=== PATIENT | female | born 1970 | race Caucasian/White ===

== ENCOUNTER 2016-07-09 06:41 | Emergency (ER) | payer SELFPAY ==
[~2016-07-09 06:41] MED LIST: ALBU6.7H INH; AZIT250T3 PO; PRED20 PO; VENTAER INH
[2016-07-09 06:48] VITALS: BP 110/64; PULSE 83; RESP 16; TEMP 98.6; O2SAT 97
--- NOTE | 2016-07-09 07:13 | PD ---
HPI Chief Complaint: Respiratory Symptoms Time Seen by Provider: 07:04 Travel History International Travel<30 days: No Contact w/Intl Traveler<30days: No Traveled to known affect area: No History of Present Illness HPI Patient is a 45 year old female with hx of Asthma/COPD exacerbation, presents to ER with c/o of shortness of breath. Patient reports that she ran out of her inhaler 2 weeks ago and does not have a PCP to refill her albuterol script. Patient reports that for the past week, she has had a productive cough, reports that she has been wheezing and has been feeling short of breath. Patient reports that she did not have her rescue inhaler which usually helps her symptoms. Patient denies any fevers or chills, denies any chest pain at this time. Patient reports that she was a past smoker, currently does not smoke. Patient here for asthma exacerbation. Patient also reports that she last night, reports that she tripped and fell and landed on her right wrist, patient complaining of right wrist pain. Patient requesting x-rays of her wrist [facility] Past Medical History Asthma: Yes COPD: Yes Diminished Hearing: No Respiratory: Yes ?: Not Past Surgical History Surgical History: No Previous Surgery Social History Alcohol Use: Yes Tobacco Use: Yes Substance Use: No Allergies-Medications (Allergen,Severity, Reaction): Coded Allergies: No Known Allergies (Unverified , 07/09/16) Reported Meds & Prescriptions Reported Meds & Active Scripts Active Ibuprofen 600 Mg Tab 600 Mg PO Q6H PRN Tylenol-Codeine #3 (Acetaminophen-Codeine) 300-30 mg Tab 1 Tab PO Q4H PRN Azithromycin 500 Mg Tab 500 Mg PO DAILY Proair Hfa 8.5 GM Inh (Albuterol Sulfate) 90 Mcg/Act Aer 2 Puff INH Q4-6H PRN 108 mcg/actuation Prednisone 20 Mg Tab 20 Mg PO BID 5 Days Ventolin Hfa 18 GM Inh (Albuterol Sulfate) 90 Mcg/Act Aer 2 Puff INH Q4H PRN Reported Proventil Hfa 6.7 GM Inh (Albuterol Sulfate) 90 Mcg/Act Aer 2 Puff INH Q4-6H PRN Review of Systems General / Constitutional: No: Fever Eyes: No: Visual changes HENT: No: Headaches Cardiovascular: No: Chest Pain or Discomfort Respiratory: Positive: Cough, Shortness of Breath, Wheezing Gastrointestinal: No: Abdominal Pain Genitourinary: No: Dysuria Musculoskeletal: Positive: Limited ROM (right wrist pain), No: Pain Skin: No Rash Neurologic: No: Weakness Psychiatric: No: Depression Endocrine: No: Polydipsia Hematologic/Lymphatic: No: Easy Bruising Physical Exam Narrative GENERAL: No acute distress, nontoxic SKIN: Warm and dry. HEAD: Normocephalic. Patient with abrasions to left side of forehead EYES: Pupils equal and round. No scleral icterus. No injection or drainage. ENT: No nasal bleeding or discharge. Mucous membranes pink and moist. NECK: Trachea midline. No JVD. CARDIOVASCULAR: Regular rate and rhythm. No murmur appreciated. RESPIRATORY: No accessory muscle use. Patient with scattered wheezing throughout lungs GASTROINTESTINAL: Abdomen soft, non-tender, nondistended. Hepatic and splenic margins not palpable. MUSCULOSKELETAL: No obvious deformities. No clubbing. No cyanosis. No edema. Patient with pain to right wrist, no obvious fx, pulses intact, neurovascularly intact, no pain to right scaphoid; left upper extremity: Normal exam NEUROLOGICAL: Awake and alert. No obvious cranial nerve deficits. Motor grossly within normal limits. Normal speech. Cranial nerves II-12 grossly intact without any obvious neuro deficits PSYCHIATRIC: Appropriate mood and affect; insight and judgment normal. Data Data Last Documented VS Vital Signs Date Time Temp Pulse Resp B/P Pulse Ox O2 Delivery O2 Flow Rate FiO2 07/09/16 07:43 100 Aerosol Mask 07/09/16 07:43 22 07/09/16 06:48 98.6 83 110/64 Orders Complete Blood Count With Diff (07/09/16 07:09) Comprehensive Metabolic Panel (07/09/16 07:09) Magnesium (Mg) (07/09/16 07:09) Urinalysis - C+S If Indicated (07/09/16 07:09) Influenzae A/B Antigen (07/09/16 07:09) Iv Access Insert/Monitor (07/09/16 07:09) Ecg Monitoring (07/09/16 07:09) Oximetry (07/09/16 07:09) Oxygen Administration (07/09/16 07:09) Chest, Single Ap (07/09/16 07:09) Sodium Chloride 0.9% Flush (Ns Flush) (07/09/16 07:15) Methylprednisolone So Succ Inj (Solumedr (07/09/16 07:15) Albuterol-Ipratropium Neb (Duoneb Neb) (07/09/16 07:15) Wrist, Complete ([id number]) (07/09/16 ) Hand, Complete ([id number]) (07/09/16 ) Ed Urine Pregnancytest Poc (07/09/16 07:09) Splinting (07/09/16 ) Labs Laboratory Tests Test 07/09/16 07/09/16 07:30 07:45 White Blood Count 14.7 TH/MM3 Red Blood Count 4.07 MIL/MM3 Hemoglobin 13.5 GM/DL Hematocrit 38.6 % Mean Corpuscular Volume 94.8 FL Mean Corpuscular Hemoglobin 33.3 PG Mean Corpuscular Hemoglobin 35.1 % Concent Red Cell Distribution Width 12.6 % Platelet Count 223 TH/MM3 Mean Platelet Volume 8.5 FL Neutrophils (%) (Auto) 82.4 % Lymphocytes (%) (Auto) 11.8 % Monocytes (%) (Auto) 4.2 % Eosinophils (%) (Auto) 1.0 % Basophils (%) (Auto) 0.6 % Neutrophils # (Auto) 12.2 TH/MM3 Lymphocytes # (Auto) 1.7 TH/MM3 Monocytes # (Auto) 0.6 TH/MM3 Eosinophils # (Auto) 0.1 TH/MM3 Basophils # (Auto) 0.1 TH/MM3 CBC Comment DIFF FINAL Differential Comment Sodium Level 141 MEQ/L Potassium Level 3.8 MEQ/L Chloride Level 108 MEQ/L Carbon Dioxide Level 19.9 MEQ/L Anion Gap 13 MEQ/L Blood Urea Nitrogen 11 MG/DL Creatinine 0.67 MG/DL Estimat Glomerular Filtration 96 ML/MIN Rate Random Glucose 55 MG/DL Calcium Level 8.4 MG/DL Magnesium Level 1.6 MG/DL Total Bilirubin 0.3 MG/DL Aspartate Amino Transf 14 U/L (AST/SGOT) Alanine Aminotransferase 15 U/L (ALT/SGPT) Alkaline Phosphatase 55 U/L Total Protein 6.7 GM/DL Albumin 3.6 GM/DL Urine Color YELLOW Urine Turbidity HAZY Urine pH 5.5 Urine Specific Douglas 1.018 Urine Protein TRACE mg/dL Urine Glucose (UA) NEG mg/dL Urine Ketones 10 mg/dL Urine Occult Blood NEG Urine Nitrite NEG Urine Bilirubin NEG Urine Urobilinogen LESS THAN 2.0 MG/DL Urine Leukocyte Esterase NEG Urine RBC 2 /hpf Urine Squamous Epithelial 12 /hpf Cells Urine Mucus FEW /lpf Microscopic Urinalysis Comment CULT NOT INDICATED MDM Medical Decision Making Medical Screen Exam Complete: Yes Emergency Medical Condition: Yes Interpretation(s) Vital Signs Date Time Temp Pulse Resp B/P Pulse Ox O2 Delivery O2 Flow Rate FiO2 07/09/16 06:48 98.6 83 16 110/64 97 Differential Diagnosis Asthma/COPD exacerbation, pneumonia, influenza Narrative Course Patient is a 45-year-old female with history of asthma/COPD exacerbation, as the emergency room with complaints of shortness of breath and wheezing for the past week. Patient reports that she ran out of her rescue inhaler 2 weeks ago, reports that she does not have a primary care doctor to refill her prescription. Patient reports increased cough and congestion with her symptoms , denies fevers or chills. Patient reports that her symptoms today are similar to her past asthma/COPD exacerbations. Overall patient nontoxic and evaluation. Patient is wheezing, nebulizer treatment ordered for patient. We'll give patient IV Solu-Medrol, x-ray of the chest ordered as well as lab work. X-ray of her right wrist was ordered as patient complaining of wrist pain after a fall last night. We'll continue to monitor patient. Patient is feeling much better, patient reports decreased wheezing at this time. I reviewed all labs and all studies with patient in detail. Patient with COPD exacerbation, will discharge home with albuterol and steroids. X-ray of the right wrist does show acute medical carpal fracture of the fifth digit. Copies of patient's x-ray was given to patient. Patient was put in splint. Understands need to follow up with ortho as outpt. Signs and symptoms of when to return to the emergency room was reviewed with patient in detail. Diagnosis Primary Impression: COPD exacerbation Additional Impression: Fracture, metacarpal Qualified Code: S62.396A - Closed nondisplaced fracture of other part of fifth metacarpal bone of right hand, initial encounter Referrals: Mikhail Tobin MD Patient Instructions: General Instructions Additional Instructions: Please follow-up with your primary care doctor in 1-2 days Please follow-up with orthopedic surgeon, please call for earliest follow up Return to the emergency room as needed Scripts Ibuprofen 600 Mg [id number] Mg PO Q6H PRN (Pain/Inflammation) #40 TAB Ref 0 Prov:Rena Martínez DO 07/09/16 Acetaminophen-Codeine (Tylenol-Codeine #3)300-30 mg Tab1 Tab PO Q4H PRN (PAIN) # 10 TAB Ref 0 Prov:Rena Martínez DO 07/09/16 Azithromycin 500 Mg [id number] Mg PO DAILY #5 TAB Ref 0 Prov:Rena Martínez DO 07/09/16 Albuterol 8.5 GM Inh (Proair Hfa 8.5 GM Inh)90 Mcg/Act Aer2 Puff INH Q4-6H PRN ( SHORTNESS OF BREATH) #1 INHALER Ref 0 108 mcg/actuation Prov:Rena Martínez DO 07/09/16 Prednisone 20 Mg Tab20 Mg PO BID 5 Days Ref 0 Prov:Rena Martínez DO 07/09/16 Disposition: 01 DISCHARGE HOME Condition: Stable Rena Martínez DO Jul 09, 2016 07:13
[2016-07-09] MEDS ORDERED: SODIUM CHLORIDE 0.9% FLUSH 5 ML FLUSH IVF PRN (07:15)
[2016-07-09] MEDS ORDERED: methylPREDNISolone SOD SUCC 125 MG/2 ML VIAL IVP ONE (07:15)
[2016-07-09] MEDS: RESP: ALBUTEROL 2.5 MG/IPRATROPIUM 0.5 MG NEB (SCH) INH (07:18)
[2016-07-09 07:43] VITALS: RESP 22; O2SAT 100
[2016-07-09 07:47] LABS: AUTOMATED NEUTROPHIL # 12.2 TH/MM3 (1.8-7.7); BASOPHIL # 0.1 TH/MM3 (0-0.2); BASOPHIL % 0.6 % (0.0-2.0); EOSINOPHIL # 0.1 TH/MM3 (0-0.4); HEMATOCRIT 38.6 % (35.0-46.0); HEMO FLAGS DIFF FINAL; LYMPH % 11.8 % (9.0-44.0); LYMPHOCYTE # 1.7 TH/MM3 (1.0-4.8); MEAN CELL VOLUME 94.8 FL (80.0-100.0); MEAN CORPUSCULAR HEMOGLOBIN 33.3 PG (27.0-34.0); MEAN CORPUSCULAR HGB CONC 35.1 % (32.0-36.0); MONO % 4.2 % (0.0-8.0); NEUT % 82.4 % (16.0-70.0); PLATELET COUNT 223 TH/MM3 (150-450); RED BLOOD COUNT 4.07 MIL/MM3 (4.00-5.30); RED CELL DISTRIBUTION WIDTH 12.6 % (11.6-17.2); WHITE BLOOD COUNT 14.7 TH/MM3 (4.0-11.0)
[2016-07-09 08:00] VITALS: BP 110/67; PULSE 98; RESP 16; O2SAT 100
--- NOTE | 2016-07-09 08:00 | RADRPT ---
EXAM DATE/TIME: 07/09/2016 07:25 [facility] COMPARISON: CHEST SINGLE AP, June 20, 2015, 4:12. INDICATIONS : Shortness of breath. MEDICAL HISTORY : None. SURGICAL HISTORY : None. ENCOUNTER: Initial ACUITY: 1 day PAIN SCORE: 0/10 LOCATION: Bilateral chest FINDINGS: A single view of the chest demonstrates the lungs to be symmetrically aerated without evidence of mas s, infiltrate or effusion. The cardiomediastinal contours are unremarkable. Osseous structures are intact. CONCLUSION: No acute disease. Brenden Cuenca MD on July 09, 2016 at 7:54 Board Certified Radiologist. This report was verified electronically.
--- NOTE | 2016-07-09 08:01 | RADRPT ---
EXAM DATE/TIME: 07/09/2016 07:28 [facility] COMPARISON: No previous studies available for comparison. INDICATIONS : Patient states she fell last night, pain. MEDICAL HISTORY : None. SURGICAL HISTORY : None. ENCOUNTER: Initial ACUITY: 1 day PAIN SCORE: 8/10 LOCATION: Right Hand FINDINGS: There is fracturing of the proximal aspect of the fifth metatarsal. There some mild anterior and late ral angulation. The fracture does not extend into the carpometacarpal joint space. CONCLUSION: Fracturing of the proximal aspect of the fifth metacarpal. Brenden Cuenca MD on July 09, 2016 at 7:58 Board Certified Radiologist. This report was verified electronically.
--- NOTE | 2016-07-09 08:03 | RADRPT ---
EXAM DATE/TIME: 07/09/2016 07:31 [facility] COMPARISON: No previous studies available for comparison. INDICATIONS : Patient states she fell last night, pain. MEDICAL HISTORY : None. SURGICAL HISTORY : None. ENCOUNTER: Initial ACUITY: 1 day PAIN SCORE: 4/10 LOCATION: Right Wrist FINDINGS: Three view examination of the right wrist demonstrates a transverse fracture at the proximal aspect o f the fifth metacarpal. This does not extend to the carpometacarpal joint. Carpal bones are intact an d normally aligned. CONCLUSION: Fifth metacarpal fracture. Carpal bones are intact. Brenden Cuenca MD on July 09, 2016 at 7:59 Board Certified Radiologist. This report was verified electronically.
[2016-07-09 08:09] LABS: ANION GAP 13 MEQ/L (5-15); BICARBONATE 19.9 MEQ/L (21.0-32.0); BLOOD UREA NITROGEN 11 MG/DL (7-18); CHLORIDE 108 MEQ/L (98-107); GLOMERULAR FILTRATION RATE 96 ML/MIN (>89); MAGNESIUM 1.6 MG/DL (1.5-2.5); POTASSIUM 3.8 MEQ/L (3.5-5.1); SODIUM (NA) 141 MEQ/L (136-145)
[2016-07-09 08:12] LABS: ALKALINE PHOSPHATASE 55 U/L (45-117); ALT (GPT) 15 U/L (10-53); AST (GOT) 14 U/L (15-37); TOTAL BILIRUBIN ADULT 0.3 MG/DL (0.2-1.0)
[2016-07-09 08:17] LABS: BLOOD, URINE NEG (NEG); GLUCOSE,URINE NEG (NEG); KETONE, URINE 10 mg/dL (NEG); MUCUS URINE FEW /lpf (OCC); NITRITE,URINE NEG (NEG); PH, URINE 5.5 (5.0-8.5); SQUAMOUS EPITHELIAL CELL URINE 12 /hpf (0-5); URINE COLOR YELLOW (YELLW/STRAW)
[2016-07-09 08:19] LABS: COMMENT (UR) CULT NOT INDICATED; CULTURE IF INDICATED CULT NOT INDICATED
[2016-07-09 09:00] VITALS: BP 102/73; PULSE 88; RESP 16; O2SAT 98
[2016-07-09] MEDS ORDERED: AZIT500T2 PO (09:08)
[2016-07-09] MEDS ORDERED: TYLETAB34 PO (09:08)
[2016-07-09] MEDS ORDERED: ALBUAER3 INH (09:08)
[2016-07-09] MEDS ORDERED: IBUP-232 PO (09:08)
[2016-07-09] MEDS ORDERED: PRED20 PO (09:08)
[2016-07-09] MEDS ORDERED: ALBUTEROL SULFATE 90 MCG/ACT HFA 8 GM INHALER INH ONE (09:15)
== END 2016-07-09 09:35 | disposition home or self-care (01) ==
LOC: NEPC 06:41
DX: J44.1 Chronic obstructive pulmonary disease with (acute) exacerbation (principal); S62.306A Unspecified fracture of fifth metacarpal bone, right hand, initial encounter for closed fracture; J45.909 Unspecified asthma, uncomplicated; R05 Cough; W01.0XXA Fall on same level from slipping, tripping and stumbling without subsequent striking against object, initial encounter; Z72.0 Tobacco use
CPT/HCPCS: 29125; 71010; 73110; 73130; 80053; 81001; 83735; 84703; 85025; 87804; 94640; 94664; 96374; 99284; J2930

== ENCOUNTER 2016-07-17 14:26 | Emergency (ER) | payer SELFPAY ==
[~2016-07-17] VITALS: Ht 167.6 cm; Wt 62.5 kg
[~2016-07-17 14:26] MED LIST changes: +ALBUAER3 INH; -AZIT250T3 PO; +AZIT500T2 PO; +IBUP-232 PO; +TYLETAB34 PO
[2016-07-17 14:28] VITALS: BP 150/87; PULSE 102; RESP 24; TEMP 97.9; O2SAT 95
== END 2016-07-17 17:35 | disposition left against medical advice (07) ==
LOC: NED 17:35
DX: R06.02 Shortness of breath (principal)
CPT/HCPCS: 99281

== ENCOUNTER 2016-08-14 22:31 | Observation (INO) | payer SELFPAY ==
[~2016-08-14] VITALS: Ht 167.6 cm; Wt 62.5 kg
[2016-08-14 22:35] VITALS: BP 155/89; PULSE 108; RESP 24; TEMP 98.4; O2SAT 93
[2016-08-15] VITALS (12 sets, daily range): BP systolic 97–128; BP diastolic 60–78; PULSE 72–118; RESP 20–26; TEMP 98–98.4; O2SAT 89–97
[2016-08-15] MEDS ORDERED: SODIUM CHLORIDE 0.9% FLUSH 10 ML FLUSH IVF PRN (02:30)
[2016-08-15] MEDS ORDERED: methylPREDNISolone SOD SUCC 125 MG/2 ML VIAL IVP ONE (02:30)
[2016-08-15] MEDS: RESP: ALBUTEROL 2.5 MG/IPRATROPIUM 0.5 MG NEB (SCH) INH (02:58)
--- NOTE | 2016-08-15 03:02 | RADRPT ---
EXAM DATE/TIME: 08/15/2016 02:57 [facility] COMPARISON: CHEST SINGLE AP, July 09, 2016, 7:25. INDICATIONS : Shortness of breath. MEDICAL HISTORY : Chronic obstructive pulmonary disease. SURGICAL HISTORY : None. ENCOUNTER: Initial ACUITY: 2 days PAIN SCORE: 0/10 LOCATION: Bilateral chest FINDINGS: A single view of the chest demonstrates the lungs to be symmetrically aerated without evidence of mas s, infiltrate or effusion. The cardiomediastinal contours are unremarkable. Osseous structures are intact. CONCLUSION: Normal examination. Bunny Troncoso MD on August 15, 2016 at 3:01 Board Certified Radiologist. This report was verified electronically.
[2016-08-15 03:22] LABS: AUTOMATED NEUTROPHIL # 7.9 TH/MM3 (1.8-7.7); BASOPHIL # 0.1 TH/MM3 (0-0.2); EOSINOPHIL # 0.4 TH/MM3 (0-0.4); EOSINOPHIL % 3.8 % (0.0-4.0); HEMATOCRIT 42.8 % (35.0-46.0); HEMO FLAGS DIFF FINAL; LYMPH % 19.1 % (9.0-44.0); LYMPHOCYTE # 2.2 TH/MM3 (1.0-4.8); MEAN CORPUSCULAR HGB CONC 35.4 % (32.0-36.0); NEUT % 70.1 % (16.0-70.0); PLATELET COUNT 313 TH/MM3 (150-450); RED BLOOD COUNT 4.46 MIL/MM3 (4.00-5.30); RED CELL DISTRIBUTION WIDTH 12.8 % (11.6-17.2); WHITE BLOOD COUNT 11.2 TH/MM3 (4.0-11.0)
--- NOTE | 2016-08-15 03:23 | PD ---
HPI Chief Complaint: Respiratory Symptoms Time Seen by Provider: 02:17 Travel History International Travel<30 days: No Contact w/Intl Traveler<30days: No Traveled to known affect area: No History of Present Illness HPI The patient is a 46 year old female who presents to the [facility] emergency department with a history of shortness of breath that became worse over the last 24 hours. The patient reports that her symptoms first began a week ago with an upper respiratory infection. She reports that she ran out of her pro-air inhaler, however she reports that was not working well for her anyway. The patient reports that Proventil has worked better for her in the past. She reports that she does not have a primary care physician. She reports that she has been diagnosed with COPD. She reports that she quit smoking 6 months ago. The patient reports that since last week she's had a cough and congestion. She reports having intermittent rattling in her chest. She reports having difficulty getting the sputum. She reports that she has nasal discharge that is green in color with a sore throat. She also has a postnasal drip. She reports that 2-3 days ago she had nausea and vomiting 3. She reports that today she's had intermittent loose stools. She reports that she's had a diminished appetite for the last 3 days. The patient denies any known fevers, neck pain, abdominal pain, urinary symptoms, or neurologic symptoms. [facility] Past Medical History Narrative Medical The patient's past medical history is significant for COPD. Asthma: Yes COPD: Yes Diminished Hearing: No Respiratory: Yes Immunizations Current: Yes Tetanus Vaccination: Unknown Influenza Vaccination: No ?: Not Past Surgical History Narrative Surgical The patient's past surgical history is reportedly none. Surgical History: No Previous Surgery Social History Alcohol Use: Yes Tobacco Use: No (quit smoking 6 months ago) Substance Use: No Allergies-Medications (Allergen,Severity, Reaction): Coded Allergies: No Known Allergies (Unverified , 07/17/16) Reported Meds & Prescriptions Reported Meds & Active Scripts Active Review of Systems Except as stated in HPI: all other systems reviewed are Neg General / Constitutional: No: Fever Eyes: No: Visual changes HENT: Positive: Rhinorrhea, No: Headaches, Neck Pain Cardiovascular: Positive: Chest Pain or Discomfort (chest tightness associated with wheezing) Respiratory: Positive: Cough, Shortness of Breath, Wheezing Gastrointestinal: Positive: Nausea, Vomiting, Diarrhea, Changes in Bowel Habits , No: Abdominal Pain, Hematemesis, Hematochezia, Indigestion, Dysphagia, Loss of Appetite Genitourinary: No: Dysuria Musculoskeletal: No: Pain Skin: No Rash Neurologic: No: Weakness Psychiatric: No: Depression Endocrine: No: Polydipsia Hematologic/Lymphatic: No: Easy Bruising Physical Exam Narrative General: The patient is a well-developed well-nourished female, in no acute distress. Head and Neck exam: Head is normocephalic atraumatic. Eyes: EOMI, pupils are equal round and reactive to light. Nose: Midline septum with erythematous edematous nasal mucosa and a yellow nasal discharge. Mouth: Dentition unremarkable. Moist mucus membranes. Posterior oropharynx is erythematous. No tonsillar hypertrophy. Uvula midline. Airway patent. Neck: No palpable lymphadenopathy. No nuchal rigidity. No thyromegaly. Cardiovascular: Sinus tachycardia in the low 100 without murmurs, gallops, or rubs. Lungs: Soft anterior and posterior expiratory wheezes, no conversational dyspnea, no paroxysmal abdominal breathing. Abdomen: Soft, without tenderness to palpation in all 4 quadrants of the abdomen. No guarding, rebound, or rigidity. Normal bowel sounds are audible. No tenderness on palpation of McBurney's point. [place] Samson sign. Extremities: No clubbing, cyanosis, or edema. 2+ pulses in all 4 extremities. No calf tenderness on palpation. Back: No spinous process tenderness to palpation. No costovertebral angle tenderness to palpation. Neurologic Exam: Grossly nonfocal. Skin Exam: No rash noted. Intact skin that is warm and dry. Data Data Last Documented VS Vital Signs Date Time Temp Pulse Resp B/P Pulse Ox O2 Delivery O2 Flow Rate FiO2 08/14/16 22:35 98.4 108 24 155/89 93 Orders Complete Blood Count With Diff (08/15/16 02:26) Basic Metabolic Panel (Bmp) (08/15/16 02:26) Iv Access Insert/Monitor (08/15/16 02:26) Electrocardiogram (08/15/16 02:26) Ecg Monitoring (08/15/16 02:26) Oximetry (08/15/16 02:26) Oxygen Administration (08/15/16 02:26) Chest, Single Ap (08/15/16 02:26) Sodium Chloride 0.9% Flush (Ns Flush) (08/15/16 02:30) Methylprednisolone So Succ Inj (Solumedr (08/15/16 02:30) Albuterol-Ipratropium Neb (Duoneb Neb) (08/15/16 02:30) Ed Urine Pregnancytest Poc (08/15/16 02:26) Sodium Chlor 0.9% 1000 Ml Inj (Ns 1000 M (08/15/16 03:30) Ondansetron Inj (Zofran Inj) (08/15/16 03:30) Ceftriaxone Inj (Rocephin Inj) (08/15/16 03:30) Azithromycin Inj (Zithromax Inj) (08/15/16 03:30) Labs Laboratory Tests Test 08/15/16 03:00 White Blood Count 11.2 TH/MM3 Red Blood Count 4.46 MIL/MM3 Hemoglobin 15.2 GM/DL Hematocrit 42.8 % Mean Corpuscular Volume 96.0 FL Mean Corpuscular Hemoglobin 34.0 PG Mean Corpuscular Hemoglobin 35.4 % Concent Red Cell Distribution Width 12.8 % Platelet Count 313 TH/MM3 Mean Platelet Volume 8.8 FL Neutrophils (%) (Auto) 70.1 % Lymphocytes (%) (Auto) 19.1 % Monocytes (%) (Auto) 6.0 % Eosinophils (%) (Auto) 3.8 % Basophils (%) (Auto) 1.0 % Neutrophils # (Auto) 7.9 TH/MM3 Lymphocytes # (Auto) 2.2 TH/MM3 Monocytes # (Auto) 0.7 TH/MM3 Eosinophils # (Auto) 0.4 TH/MM3 Basophils # (Auto) 0.1 TH/MM3 CBC Comment DIFF FINAL Differential Comment MDM Medical Decision Making Medical Screen Exam Complete: Yes Emergency Medical Condition: Yes Medical Record Reviewed: Yes Differential Diagnosis COPD exacerbation, versus pneumonia, versus bronchitis Narrative Course During the course of the patients emergency department visit, the patients history, examination, and differential diagnosis were reviewed with the patient. The patient had IV access obtained and blood work sent for analysis. The patient was placed on a associate professor of physics with oximetry and blood pressure monitoring. The patient was initially provided Solu-Medrol 125 mg IV, Rocephin 1 g IV, Zithromax 500 IV, Zofran 4 mg IV, normal saline 1 L IV fluid bolus. The patients laboratory studies were reviewed and remarkable for a BMP that is remarkable for BUN of 5, GFR of 84, white count is 11.2, hemoglobin 15.2, platelets 313 with 70.1 neutrophils Radiology studies were reviewed and remarkable for a chest x-ray that shows no acute abnormality. The patient was reexamined and reportedly feeling improved. The patient is resting comfortably and feels better, is alert and in no distress. The patients results and examination findings were discussed with the patient. The repeat examination is unremarkable and benign. The history, exam, diagnostic testing, and current condition do not suggest any significant pathology to warrant further testing, continued ED treatment, admission, or surgical evaluation at this point. The vital signs have been stable. The patient does not have uncontrollable pain, intractable vomiting, or other significant symptoms. The patient's condition is stable and appropriate for discharge. The patient will pursue further outpatient evaluation with a primary care physician or other designated or consulting physician as indicated in the discharge instructions. The patient expressed understanding and was agreeable with this plan. Diagnosis Primary Impression: COPD exacerbation Additional Impression: Bronchitis Referrals: Patient Assistance Program 1 day Primary Care Physician 3 days Patient Instructions: COPD (Chronic Obstructive Pulmonary Disease) (ED), General Instructions Med/Other Pt SpecificInfo: Prescription(s) given Scripts Methylprednisolone Dosepak (Medrol Dosepak)4 Mg Dspk4 Mg PO DIRECTED #1 DSPK Ref 0 Per Pharmacist direction Prov:Carlota Swain MD 08/15/16 Doxycycline Hyclate 100 Mg [id number] Mg PO BID #20 CAP Ref 0 Prov:Carlota Swain MD 08/15/16 Albuterol 6.7 GM Inh (Proventil Hfa 6.7 GM Inh)90 Mcg/Act Aer2 Puff INH Q4-6H PRN (SHORTNESS OF BREATH) #1 INHALER Ref 0 Prov:Carlota Swain MD 08/15/16 Disposition: 01 DISCHARGE HOME Condition: Stable Carlota Swain MD Aug 15, 2016 03:23
[2016-08-15] MEDS ORDERED: cefTRIAXone INJ 1,000 MG in SODIUM CHLORIDE 0.9% INJ 100 ML IV ONE (03:30)
[2016-08-15] MEDS ORDERED: ONDANSETRON HCL 4 MG/2 ML VIAL IV ONE (03:30)
[2016-08-15] MEDS ORDERED: AZITHROMYCIN INJ 500 MG in SODIUM CHLOR 0.9% 250 ML INJ 250 ML IV ONE (03:30)
[2016-08-15] MEDS ORDERED: SODIUM CHLOR 0.9% 1000 ML INJ 1,000 ML IV ONE (03:30)
[2016-08-15 03:39] LABS: POTASSIUM 3.7 MEQ/L (3.5-5.1)
[2016-08-15] MEDS ORDERED: DOXY100C PO (03:42)
[2016-08-15] MEDS ORDERED: ALBU6.7H INH (03:42)
[2016-08-15] MEDS ORDERED: MEDR4PAK PO (03:42)
[2016-08-15] MEDS ORDERED: NALOXONE HCL 0.4 MG/ML AMP IV PRN (05:45)
[2016-08-15] MEDS ORDERED: RESP: ALBUTEROL 2.5 MG/IPRATROPIUM 0.5 MG NEB (PRN) NEB (06:00)
[2016-08-15] MEDS ORDERED: IOHEXOL 350 MG/ML 10 ML VIAL (for RAD DIAG) IV ONE (06:29)
--- NOTE | 2016-08-15 06:36 | RADRPT ---
EXAM DATE/TIME: 08/15/2016 06:12 [facility] COMPARISON: No previous studies available for comparison. INDICATIONS : Short of breath. IV CONTRAST: 75 cc Omnipaque 350 (iohexol) IV RADIATION DOSE: 8.19 CTDIvol (mGy) MEDICAL HISTORY : Chronic obstructive pulmonary disease. Asthma. SURGICAL HISTORY : None. ENCOUNTER: Initial ACUITY: 1 day PAIN SCALE: 0/10 LOCATION: chest TECHNIQUE: Volumetric scanning of the chest was performed using a pulmonary embolism protocol MIP images were re constructed. Using automated exposure control and adjustment of the mA and/or kV according to patien t size, radiation dose was kept as low as reasonably achievable to obtain optimal diagnostic quality images. FINDINGS: PULMONARY ARTERIES: No filling defects are seen in the pulmonary arteries through the segmental level. LUNGS: There is no consolidation or pneumothorax . No concerning pulmonary nodule is visualized. PLEURAE: There is no pleural thickening or pleural effusion. MEDIASTINUM: There is good visualization of the great vessels of the middle mediastinum. No evidence of mediastin al or hilar adenopathy/mass. MUSCULOSKELETAL: Within normal limits for patient age. MISCELLANEOUS: The visualized upper abdominal organs demonstrate no acute abnormality. CONCLUSION: Normal examination. Bunny Troncoso MD on August 15, 2016 at 6:34 Board Certified Radiologist. This report was verified electronically.
[2016-08-15] MEDS: methylPREDNISolone SOD SUCC 40 MG/1 ML VIAL IV PUSH SCH ×3 (06:38→18:09)
--- NOTE | 2016-08-15 07:41 | EKG ---
Date Performed: 08/15/2016 Time Performed: 04:05:23 PTAGE: 46 years EKG: SINUS TACHYCARDIA ABNORMAL RHYTHM ECG NO SIGNIFICANT CHANGE FROM PRIOR ELECTROCARDIOGRAM. PREVIOUS TRACING : 04/26/2016 20.09 DOCTOR: Mayo Moulton Interpretating Date/Time 08/15/2016 07:39:29
[2016-08-15] MEDS: SODIUM CHLORIDE 0.9% FLUSH 10 ML FLUSH IV FLUSH SCH ×2 (09:00→21:00)
[2016-08-15] MEDS: PANTOPRAZOLE SOD 40 MG DELAYED RELEASE TAB PO SCH (09:01)
[2016-08-15] MEDS: RESP: ALBUTEROL 2.5 MG/IPRATROPIUM 0.5 MG NEB (SCH) NEB ×3 (09:38→19:30)
--- NOTE | 2016-08-15 11:26 | HHI.HP ---
[facility] Primary Care Physician Admission Diagnosis COPD exacerbation Diagnoses: Chief Complaint: Dyspnea Travel History International Travel<30 Days: No Contact w/Intl Traveler <30 Da: No Traveled to Known Affected Are: No History of Present Illness The patient is a 46-year-old female with past medical history of COPD who is presenting to the hospital with shortness of breath. The patient says that over the past 90 days she has had to come to the hospital 3 times for shortness of breath. She says the last time she came to the emergency department she was discharged on Flovent and that did not work as well as her albuterol. She said she started to develop allergies last week including a runny nose. She took TheraFlu for that. She then developed symptoms of tightness and soreness in her back and shoulder area. She also started developing shortness of breath. She said her shortness of breath was so bad she has not been able to eat for the past 3 days. She said the Flovent wasn't helping. She had run out of her albuterol about 45 days ago. She says she quit smoking about 6 months ago but her boyfriend who she lives with is still smoking. The patient says she is not on oxygen at home. She has a significant cough and has had soreness in her chest from coughing. She also describes a spasm sensation in her abdomen that comes and goes. She has had a fever up to 101.9. 3 days ago she did have nausea and vomiting as well as diarrhea but that seems to be resolved. Review of Systems Except as stated in HPI: all other systems reviewed are Neg Past Family Social History Past Medical History COPD Past Surgical History The patient denies any surgery Allergies: Coded Allergies: No Known Allergies (Unverified , 07/17/16) Active Ordered Medications Current Medications Medications (Trade) Dose Ordered Sig/Joseph Route Start Time Stop Time Status Last Admin (NS Flush) 2 ml UNSCH PRN IVF 08/15/16 02:30 (NS Flush) 2 ml UNSCH PRN IV FLUSH 08/15/16 05:45 (NS Flush) 2 ml BID IV FLUSH 08/15/16 09:00 (Narcan Inj) 0.4 mg UNSCH PRN IV 08/15/16 05:45 (SoluMEDROL INJ) 40 mg Q6HR IV PUSH 08/15/16 06:00 08/15/16 06:38 (Protonix) 40 mg DAILY PO 08/15/16 09:00 08/15/16 09:01 Family History Breast cancer Social History The patient quit smoking about 6 months ago. She lives with her boyfriend who still smokes. She has an occasional beer. She does not use illicit drugs. Physical Exam Vital Signs Vital Signs Date Time Temp Pulse Resp B/P Pulse Ox O2 Delivery O2 Flow Rate FiO2 08/15/16 09:39 94 Nasal Cannula 3.00 08/15/16 09:01 106 22 117/60 93 Nasal Cannula 3 08/15/16 07:44 94 Nasal Cannula 3 08/15/16 06:00 94 24 97/71 08/15/16 04:48 95 Nasal Cannula 2 08/15/16 04:00 102 26 105/65 89 Nasal Cannula 3 08/15/16 02:00 88 22 120/78 95 Nasal Cannula 2 08/14/16 22:35 98.4 108 24 155/89 93 Physical Exam GENERAL: This is a well-nourished, well-developed patient, in no apparent distress. SKIN: No rashes, ecchymoses or lesions. Cool and dry. HEAD: Atraumatic. Normocephalic. No temporal or scalp tenderness. EYES: Pupils equal round and reactive. Extraocular motions intact. No scleral icterus. No injection or drainage. ENT: Nose without bleeding, purulent drainage or septal hematoma. Throat without erythema, tonsillar hypertrophy or exudate. Uvula midline. Airway patent. NECK: Trachea midline. No JVD or lymphadenopathy. Supple, nontender, no meningeal signs. CARDIOVASCULAR: Tachycardic without murmurs, gallops, or rubs. RESPIRATORY: Scattered rhonchi, diffuse expiratory wheezing. GASTROINTESTINAL: Abdomen soft, non-tender, nondistended. No hepato-splenomegaly , or palpable masses. No guarding. MUSCULOSKELETAL: Extremities without clubbing, cyanosis, or edema. No joint tenderness, effusion, or edema noted. NEUROLOGICAL: Awake and alert. Cranial nerves II through XII intact. Motor and sensory grossly within normal limits. Five out of 5 muscle strength in all muscle groups. Normal speech. PSYCH: Slightly anxious. Laboratory Laboratory Tests Test 08/15/16 03:00 White Blood Count 11.2 Red Blood Count 4.46 Hemoglobin 15.2 Hematocrit 42.8 Mean Corpuscular Volume 96.0 Mean Corpuscular Hemoglobin 34.0 Mean Corpuscular Hemoglobin 35.4 Concent Red Cell Distribution Width 12.8 Platelet Count 313 Mean Platelet Volume 8.8 Neutrophils (%) (Auto) 70.1 Lymphocytes (%) (Auto) 19.1 Monocytes (%) (Auto) 6.0 Eosinophils (%) (Auto) 3.8 Basophils (%) (Auto) 1.0 Neutrophils # (Auto) 7.9 Lymphocytes # (Auto) 2.2 Monocytes # (Auto) 0.7 Eosinophils # (Auto) 0.4 Basophils # (Auto) 0.1 CBC Comment DIFF FINAL Differential Comment Sodium Level 141 Potassium Level 3.7 Chloride Level 107 Carbon Dioxide Level 26.0 Anion Gap 8 Blood Urea Nitrogen 5 Creatinine 0.75 Estimat Glomerular Filtration 84 Rate Random Glucose 83 Calcium Level 8.9 Result Diagram: 08/15/16 0300 08/15/16 [address] Angiography 08/15/16 0459 Signed Impressions: Service Date/Time: Monday, August 15, 2016 06:12 - CONCLUSION: Normal examination. Bunny Troncoso MD Chest X-Ray 08/15/16 0226 Signed Impressions: Service Date/Time: Monday, August 15, 2016 02:57 - CONCLUSION: Normal examination. Bunny Troncoso MD Assessment and Plan Assessment and Plan Acute COPD exacerbation The patient has been to the hospital 3 times over the past 90 days. She ran out of her albuterol about 45 days ago. She has been taking Flovent which is what she was discharged from the emergency department on the last time she was here. Oxygen saturation in the mid 80s in the emergency department. Chest x- ray and CT chest unremarkable. - Continue Solu-Medrol. - Standing nebs as well as as needed nebs. - Encourage ambulation. - Incentive spirometry. - Start IV Levaquin. - Case management consult to assist with medications upon discharge. Would benefit from being discharged on Symbicort or Advair along with a rescue inhaler. Chest discomfort Secondary to coughing. EKG with sinus tachycardia. No evidence of ischemia. - Trend troponins. - Cough suppressants as needed. - Telemetry. - Pain control as needed. Leukocytosis Likely a stress reaction. - Follow CBC. PPx: SCDs. Discussed Condition With Patient Joseph Kohli DO Aug 15, 2016 11:26
[2016-08-15] MEDS: LORATADINE 10 MG TAB PO SCH (12:56)
[2016-08-16] VITALS: BP 103/68; PULSE 86; RESP 18; TEMP 98.2; O2SAT 95
[2016-08-16] MEDS: SODIUM CHLORIDE 0.9% FLUSH 10 ML FLUSH IV FLUSH PRN ×2 (00:21→06:33)
[2016-08-16] MEDS: methylPREDNISolone SOD SUCC 40 MG/1 ML VIAL IV PUSH SCH ×3 (00:22→13:17)
[2016-08-16] MEDS: RESP: ALBUTEROL 2.5 MG/IPRATROPIUM 0.5 MG NEB (SCH) NEB ×3 (02:59→14:47)
[2016-08-16] MEDS ORDERED: LEVOFLOXACIN 750 MG PREMIX INJ 150 ML IV SCH (03:00)
[2016-08-16 04:00] VITALS: BP 102/64; PULSE 87; RESP 18; TEMP 97.3; O2SAT 95
[2016-08-16 06:48] LABS: AUTOMATED NEUTROPHIL # 17.1 TH/MM3 (1.8-7.7); HEMATOCRIT 38.5 % (35.0-46.0); HEMO FLAGS DIFF FINAL; LYMPHOCYTE # 0.7 TH/MM3 (1.0-4.8); MEAN CELL VOLUME 96.6 FL (80.0-100.0); MEAN CORPUSCULAR HEMOGLOBIN 32.6 PG (27.0-34.0); MEAN CORPUSCULAR HGB CONC 33.7 % (32.0-36.0); MONO % 2.3 % (0.0-8.0); NEUT % 93.7 % (16.0-70.0); PLATELET COUNT 274 TH/MM3 (150-450); RED BLOOD COUNT 3.99 MIL/MM3 (4.00-5.30); RED CELL DISTRIBUTION WIDTH 13.1 % (11.6-17.2); WHITE BLOOD COUNT 18.2 TH/MM3 (4.0-11.0)
[2016-08-16 07:09] LABS: ANION GAP 9 MEQ/L (5-15); BLOOD UREA NITROGEN 9 MG/DL (7-18); CHLORIDE 107 MEQ/L (98-107); GLOMERULAR FILTRATION RATE 97 ML/MIN (>89); SODIUM (NA) 140 MEQ/L (136-145)
[2016-08-16 07:40] VITALS: PULSE 78
[2016-08-16 08:21] VITALS: BP 107/66; PULSE 86; RESP 18; TEMP 97.9; O2SAT 95
[2016-08-16] MEDS: SODIUM CHLORIDE 0.9% FLUSH 10 ML FLUSH IV FLUSH SCH (09:57)
[2016-08-16] MEDS: PANTOPRAZOLE SOD 40 MG DELAYED RELEASE TAB PO SCH (09:57)
[2016-08-16] MEDS: LORATADINE 10 MG TAB PO SCH (09:57)
[2016-08-16] MEDS ORDERED: PNEUMOCOCCAL POLYVALENT INJ 25 MCG/0.5 ML SYR IM ONE (10:00)
[2016-08-16] MEDS ORDERED: INFLUENZA VIRUS VACCINE (QUADRIVALENT) 0.5 ML SYR IM ONE (10:00)
[2016-08-16 10:19] VITALS: O2SAT 94
[2016-08-16] MEDS ORDERED: BUDESONIDE-FORMOTEROL 160/4.5 MCG INHALER INH SCH (11:00)
[2016-08-16 13:13] VITALS: BP 117/60; PULSE 86; RESP 18; TEMP 98.5; O2SAT 97
[2016-08-16] MEDS ORDERED: LORA-361 PO (15:17)
[2016-08-16] MEDS ORDERED: SYMB160A INH (15:17)
[2016-08-16] MEDS ORDERED: LEVA750T PO (15:17)
[2016-08-16] MEDS ORDERED: PRED20 PO (15:17)
--- NOTE | 2016-08-16 15:18 | HHI.DCPOC ---
Discharge Care Plan Diagnosis: (1) COPD exacerbation Goals to Promote Your Health * To prevent worsening of your condition and complications * To maintain your health at the optimal level Directions to Meet Your Goals Take your medications as prescribed Follow your dietary instruction Follow activity as directed Keep your appointments as scheduled Take your immunizations and boosters as scheduled If your symptoms worsen call your PCP, if no PCP go to Urgent Care Center or Emergency Room Smoking is Dangerous to Your Health. Avoid second hand smoke Call the 24-hour hour crisis hotline for domestic abuse at Alisson Hunt PA-C Aug 16, 2016 15:18
--- NOTE | 2016-08-16 15:19 | HHI.PR ---
Subjective Remarks Follow up for COPD exacerbation. The patient reports feeling much better today. Denies any shortness of breath. Cough much improved. No fevers. She quit smoking 5-6months ago. Counseled on continued cessation and avoiding second hand smoke. She wants to go home. Objective Vitals Vital Signs Date Time Temp Pulse Resp B/P Pulse Ox O2 Delivery O2 Flow Rate FiO2 08/16/16 13:13 98.5 86 18 117/60 97 08/16/16 10:19 94 08/16/16 08:21 97.9 86 18 107/66 95 08/16/16 07:40 78 08/16/16 04:00 97.3 87 18 102/64 95 08/16/16 00:00 98.2 86 18 103/68 95 08/15/16 22:42 72 08/15/16 20:30 98.0 92 20 128/69 97 08/15/16 19:32 95 21 08/15/16 18:00 118 08/15/16 16:53 98.4 94 21 121/65 96 I/O 08/15/16 08/15/16 08/15/16 08/16/16 08/16/16 08/16/16 07:00 15:00 23:00 07:00 15:00 23:00 Intake Total 220 ml Balance 220 ml Intake Oral 220 ml # Voids 2 # Bowel Movements 0 Result Diagram: 08/16/16 0612 08/16/16 [address] Angiography 08/15/16 0459 Signed Impressions: Service Date/Time: Monday, August 15, 2016 06:12 - CONCLUSION: Normal examination. Bunny Troncoos MD Chest X-Ray 08/15/16 0226 Signed Impressions: Service Date/Time: Monday, August 15, 2016 02:57 - CONCLUSION: Normal examination. Bunny Troncoso MD Objective Remarks GENERAL: Well-nourished, well-developed middle aged female patient in [facility]. SKIN: Warm and dry. No rash. HEAD: Normocephalic. Atraumatic. NECK: Supple. Trachea midline. CARDIOVASCULAR: Regular rate and rhythm. S1, S2 noted. No murmur appreciated. RESPIRATORY: No accessory muscle use. Clear to auscultation. Breath sounds equal bilaterally. GASTROINTESTINAL: Abdomen soft, non-tender, nondistended. Normoactive bowel sounds x4. MUSCULOSKELETAL: No obvious deformities. Extremities without clubbing, cyanosis , or edema. NEUROLOGICAL: Awake and alert. No obvious cranial nerve deficits. Normal speech. PSYCHIATRIC: Appropriate mood and affect; insight and judgment normal. Medications and IVs Current Medications Medications (Trade) Dose Ordered Sig/Joseph Route Start Time Stop Time Status Last Admin (NS Flush) 2 ml UNSCH PRN IVF 08/15/16 02:30 (NS Flush) 2 ml UNSCH PRN IV FLUSH 08/15/16 05:45 08/16/16 06:33 (NS Flush) 2 ml BID IV FLUSH 08/15/16 09:00 08/16/16 09:57 (Narcan Inj) 0.4 mg UNSCH PRN IV 08/15/16 05:45 (SoluMEDROL INJ) 40 mg Q6HR IV PUSH 08/15/16 06:00 08/16/16 13:17 Pantoprazole Sodium 40 mg 40 mg DAILY PO 08/15/16 09:00 08/16/16 09:57 (Levaquin 750 Mg Premix Inj) 150 ml @ 100 mls/hr Q24H IV 08/16/16 03:00 08/16/16 03:03 (Claritin) 10 mg DAILY PO 08/15/16 11:30 08/16/16 09:57 (Symbicort 160-4.5 Inh) 1 puff Q12HR INH 08/16/16 11:00 08/16/16 13:22 (Proair Hfa Inh) 2 puff Q6HR INH 08/16/16 18:00 UNV (Proair Hfa Inh) 2 puff ONCE ONCE INH 08/16/16 16:00 08/16/16 16:01 A/P Assessment and Plan 46-year-old female with past medical history of COPD who is presenting to the hospital with shortness of breath. Acute COPD exacerbation: The patient has been to the hospital 3 times over the past 90 days. She ran out of her albuterol about 45 days ago. She has been taking Flovent which is what she was discharged from the ED on the last time she was here. Oxygen saturation in the mid 80s in the emergency department. CXR and CT chest images reviewed, unremarkable. The patient was placed on Solu- Medrol 40mg IV q6h, Duonebs q6h and prn, and started on Symbicort bid. Also started on IV Levaquin. Incentive spirometry. Case management consulted, provided information on obtaining patient assistance. Patient was given Symbicort and Albuterol inhaler at discharge. The patient greatly improved prior to discharge, no further wheezing, wants to go home. Chest discomfort: Secondary to coughing. ACS ruled out with negative cardiac enzymes 3.EKG with sinus tachycardia. No evidence of ischemia. Cough suppressants as needed. Telemetry. Pain control as needed. Leukocytosis: Likely a stress reaction. On antibiotics as above. PPx: SCDs. Written by Alisson Hunt, acting as scribe for Dr. Nair on 08/16/16 at 15: 19. Discharge Planning Discharge patient to home Condition on discharge: Improved Regular Diet as tolerated Ad Laura activity Rx written: Prednisone taper, Symbicort bid, Albuterol inh prn, Levaquin 750mg po qd x5days Follow-up with primary care physician Dr. Grier in 1 week Attending Statement This note was transcribed by scribe. I, Dr. Kandi Nair personally performed the history, physical exam, and medical decision making; and confirmed the accuracy of the information in the transcribed note. Authenticated by Dr. Kandi Nair on 08/18/16 at 13:42. Alisson Hunt PA-C Aug 16, 2016 15:19 Kandi Nair MD Aug 18, 2016 13:42
[2016-08-16] MEDS ORDERED: ALBU6.7H INH (15:31)
[2016-08-16] MEDS ORDERED: ALBUTEROL SULFATE 90 MCG/ACT HFA 8 GM INHALER INH ONE (16:00)
[2016-08-16] MEDS ORDERED: ALBUTEROL SULFATE 90 MCG/ACT HFA 18 GM INHALER INH ONE (16:00)
[2016-08-16] MEDS ORDERED: ALBUTEROL SULFATE 90 MCG/ACT HFA 18 GM INHALER INH SCH (22:00)
== END 2016-08-16 18:24 | disposition home or self-care (01) ==
LOC: NEPC 22:31 → INTOOBSV 08-15 04:59 → NEDA 08-15 04:59 → NEPHCDU 08-15 14:42
PROVIDERS: ADMIT Family Medicine; ATTEND Family Medicine
DX: J44.1 Chronic obstructive pulmonary disease with (acute) exacerbation (principal); J40 Bronchitis, not specified as acute or chronic; D72.829 Elevated white blood cell count, unspecified; R07.89 Other chest pain; Z23 Encounter for immunization; Z87.891 Personal history of nicotine dependence
CPT/HCPCS: 71010; 71275; 80048; 84484; 84703; 85025; 90686; 93005; 94150; 94640; 94664; 96365; 96375; 97163; 99285; G0378; G8987; G8988; J0456; J0696; J1956; J2405; J2920; J2930; J7030; J7050; Q9967; Q2038

== ENCOUNTER 2017-01-16 17:42 | Emergency (ER) | payer SELFPAY ==
[~2017-01-16] VITALS: Ht 167.6 cm; Wt 60.0 kg
[~2017-01-16 17:42] MED LIST changes: -ALBUAER3 INH; -AZIT500T2 PO; -IBUP-232 PO; +LEVA750T PO; +LORA-361 PO; +SYMB160A INH; -TYLETAB34 PO; -VENTAER INH
[2017-01-16 17:44] VITALS: BP 146/84; PULSE 83; RESP 16; TEMP 98.6; O2SAT 97
--- NOTE | 2017-01-16 17:51 | PD ---
HPI . COPD exacerbation Chief Complaint: Respiratory Symptoms Time Seen by Provider: 17:51 Travel History International Travel<30 days: No Contact w/Intl Traveler<30days: No Traveled to known affect area: No History of Present Illness HPI 46-year-old female with history of COPD here with complaints of COPD exacerbation. Patient tells me that she ran out of her pro-air inhaler for approximately 2 weeks. She's been trying to self treat at home, and tells me now she feels that she may be worsening. She decided to come to the emergency department for evaluation. She reports some difficulty with breathing. She says that she actually doesn't notice it herself, but her family members notice it. She denies any recent illness, fever or chills. She has no chest pain, nausea, vomiting diaphoresis or other pains. PFSH Past Medical History Asthma: Yes Anxiety: Yes Cancer: No Cardiovascular Problems: No COPD: Yes Diminished Hearing: No Endocrine: No Musculoskeletal: No Neurologic: No Reproductive: No Respiratory: Yes Immunizations Current: Yes ?: Not LMP: 12/30/16 Social History Alcohol Use: Yes Tobacco Use: No (quit smoking 6 months ago) Substance Use: Yes (xanas) Allergies-Medications (Allergen,Severity, Reaction): Coded Allergies: No Known Allergies (Unverified , 08/15/16) Reported Meds & Prescriptions Reported Meds & Active Scripts Active Proair Hfa 8.5 GM Inh (Albuterol Sulfate) 90 Mcg/Act Aer 2 Puff INH Q6H PRN 108 mcg/actuation Prednisone 50 Mg Tab 50 Mg PO DAILY 5 Days Proventil Hfa 6.7 GM Inh (Albuterol Sulfate) 90 Mcg/Act Aer 2 Puff INH Q4-6H PRN Review of Systems General / Constitutional: No: Fever Eyes: No: Visual changes HENT: No: Headaches Cardiovascular: No: Chest Pain or Discomfort Respiratory: Positive: Cough, Shortness of Breath, Wheezing Gastrointestinal: No: Abdominal Pain Genitourinary: No: Dysuria Musculoskeletal: No: Pain Skin: No Rash Neurologic: No: Weakness Psychiatric: No: Depression Endocrine: No: Polydipsia Hematologic/Lymphatic: No: Easy Bruising Physical Exam Narrative GENERAL: AAO x 3, no acute distress, Well-nourished, well-developed patient. SKIN: Warm and dry. No visible rashes or bruising. HEAD: Normocephalic and atraumatic. EYES: No scleral icterus. No injection or drainage. EOM intact, PERRLA ENT: No nasal drainage noted. Mucous membranes pink. Airway patent. NECK: Supple, trachea midline. No JVD. CARDIOVASCULAR: Regular rate and rhythm without murmurs, gallops, or rubs. RESPIRATORY: Diminished breath sounds bilaterally with rhonchi scattered throughout, audible expiratory wheezing GASTROINTESTINAL: Abdomen soft, non-tender, nondistended. EXTREMITIES: No cyanosis or edema. BACK: No obvious deformity. No CVA tenderness. 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 Data Data Last Documented VS Vital Signs Date Time Temp Pulse Resp B/P (MAP) Pulse Ox O2 Delivery O2 Flow Rate FiO2 01/16/17 19:39 97 21 01/16/17 19:07 77 20 128/65 (86) Room Air 01/16/17 17:44 98.6 Orders Orders Complete Blood Count With Diff (01/16/17 17:56) Basic Metabolic Panel (Bmp) (01/16/17 17:56) Iv Access Insert/Monitor (01/16/17 17:56) Ecg Monitoring (01/16/17 17:56) Oximetry (01/16/17 17:56) Oxygen Administration (01/16/17 17:56) Chest, Single Ap (01/16/17 17:56) Sodium Chloride 0.9% Flush (Ns Flush) (01/16/17 18:00) Methylprednisolone So Succ Inj (Solumedr (01/16/17 18:00) Albuterol-Ipratropium Neb (Duoneb Neb) (01/16/17 18:00) Ed Urine Pregnancytest Poc (01/16/17 17:56) Albuterol Hfa Inh (Proair Hfa Inh) (01/16/17 20:30) Labs Laboratory Tests Test 01/16/17 18:01 White Blood Count 7.6 TH/MM3 Red Blood Count 4.28 MIL/MM3 Hemoglobin 14.5 GM/DL Hematocrit 41.9 % Mean Corpuscular Volume 97.9 FL Mean Corpuscular Hemoglobin 33.8 PG Mean Corpuscular Hemoglobin Concent 34.5 % Red Cell Distribution Width 12.7 % Platelet Count 255 TH/MM3 Mean Platelet Volume 8.9 FL Neutrophils (%) (Auto) 54.4 % Lymphocytes (%) (Auto) 31.2 % Monocytes (%) (Auto) 10.4 % Eosinophils (%) (Auto) 3.0 % Basophils (%) (Auto) 1.0 % Neutrophils # (Auto) 4.1 TH/MM3 Lymphocytes # (Auto) 2.4 TH/MM3 Monocytes # (Auto) 0.8 TH/MM3 Eosinophils # (Auto) 0.2 TH/MM3 Basophils # (Auto) 0.1 TH/MM3 CBC Comment DIFF FINAL Differential Comment Blood Urea Nitrogen 7 MG/DL Creatinine 0.73 MG/DL Random Glucose 89 MG/DL Calcium Level 9.0 MG/DL Sodium Level 139 MEQ/L Potassium Level 3.9 MEQ/L Chloride Level 108 MEQ/L Carbon Dioxide Level 26.0 MEQ/L Anion Gap 5 MEQ/L Estimat Glomerular Filtration Rate 87 ML/MIN MDM Medical Decision Making Medical Screen Exam Complete: Yes Emergency Medical Condition: Yes Medical Record Reviewed: Yes Differential Diagnosis COPD exacerbation, less likely pneumonia, influenza Narrative Course 46 yr old female here with COPD exacerbation. Labs and chest x-ray have been ordered. Solu-Medrol and breathing treatments have been ordered. Last Impressions Chest X-Ray 01/16/17 3195 Signed Impressions: Service Date/Time: Monday, January 16, 2017 17:58 - CONCLUSION: No acute disease. Alan Walton MD Laboratory Tests Test 01/16/17 18:01 White Blood Count 7.6 TH/MM3 Red Blood Count 4.28 MIL/MM3 Hemoglobin 14.5 GM/DL Hematocrit 41.9 % Mean Corpuscular Volume 97.9 FL Mean Corpuscular Hemoglobin 33.8 PG Mean Corpuscular Hemoglobin Concent 34.5 % Red Cell Distribution Width 12.7 % Platelet Count 255 TH/MM3 Mean Platelet Volume 8.9 FL Neutrophils (%) (Auto) 54.4 % Lymphocytes (%) (Auto) 31.2 % Monocytes (%) (Auto) 10.4 % Eosinophils (%) (Auto) 3.0 % Basophils (%) (Auto) 1.0 % Neutrophils # (Auto) 4.1 TH/MM3 Lymphocytes # (Auto) 2.4 TH/MM3 Monocytes # (Auto) 0.8 TH/MM3 Eosinophils # (Auto) 0.2 TH/MM3 Basophils # (Auto) 0.1 TH/MM3 CBC Comment DIFF FINAL Differential Comment Blood Urea Nitrogen 7 MG/DL Creatinine 0.73 MG/DL Random Glucose 89 MG/DL Calcium Level 9.0 MG/DL Sodium Level 139 MEQ/L Potassium Level 3.9 MEQ/L Chloride Level 108 MEQ/L Carbon Dioxide Level 26.0 MEQ/L Anion Gap 5 MEQ/L Estimat Glomerular Filtration Rate 87 ML/MIN Labs and chest x-ray have been ordered. Patient seen by Dr. Neumann. He states patient is good for discharge. She tells me she is feeling better and will come back if she starts feeling worse. Inhaler provided prior to discharge. Patient verbalized understanding of instructions, questions were answered, and thanked me for their care. I advised them if their condition worsens, please return to the nearest emergency room for further care. Diagnosis Primary Impression: COPD exacerbation Referrals: [facility] Patient Instructions: General Instructions Additional Instructions: Please return to emergency department if your symptoms return or worsen. Follow up with your primary care provider. Take medications as prescribed. Med/Other Pt SpecificInfo: Prescription(s) given Scripts Albuterol 8.5 GM Inh (Proair Hfa 8.5 GM Inh) 90 Mcg/Act Aer 2 PUFF INH Q6H Y for SHORTNESS OF BREATH, #1 INHALER 0 Refills 108 mcg/actuation Prov: Jeromy Neumann MD 01/16/17 Prednisone (Prednisone) 50 Mg Tab 50 MG PO DAILY for 5 Days, #5 TAB 0 Refills Prov: Jeromy Neumann MD 01/16/17 Disposition: 01 DISCHARGE HOME Condition: Stable Kiki Caraballo Jan 16, 2017 17:51
[2017-01-16] MEDS ORDERED: methylPREDNISolone SOD SUCC 125 MG/2 ML VIAL IV PUSH ONE (18:00)
[2017-01-16] MEDS ORDERED: SODIUM CHLORIDE 0.9% FLUSH 10 ML FLUSH IVF PRN (18:00)
[2017-01-16 18:03] VITALS: O2SAT 98
--- NOTE | 2017-01-16 18:15 | RADRPT ---
EXAM DATE/TIME: 01/16/2017 17:58 [facility] COMPARISON: CHEST SINGLE AP, August 15, 2016, 2:57. INDICATIONS : Shortness of breath. MEDICAL HISTORY : Chronic obstructive pulmonary disease. Asthma SURGICAL HISTORY : Tubal ligation. ENCOUNTER: Initial ACUITY: 1 day PAIN SCORE: 0/10 LOCATION: Bilateral chest FINDINGS: A single view of the chest demonstrates the lungs to be symmetrically aerated without evidence of mas s, infiltrate or effusion. The cardiomediastinal contours are unremarkable. Osseous structures are intact. CONCLUSION: No acute disease. Alan Walton MD on January 16, 2017 at 18:14 Board Certified Radiologist. This report was verified electronically.
[2017-01-16 18:33] LABS: AUTOMATED NEUTROPHIL # 4.1 TH/MM3 (1.8-7.7); BASOPHIL # 0.1 TH/MM3 (0-0.2); EOSINOPHIL # 0.2 TH/MM3 (0-0.4); HEMATOCRIT 41.9 % (35.0-46.0); HEMO FLAGS DIFF FINAL; LYMPH % 31.2 % (9.0-44.0); LYMPHOCYTE # 2.4 TH/MM3 (1.0-4.8); MEAN CELL VOLUME 97.9 FL (80.0-100.0); MEAN CORPUSCULAR HEMOGLOBIN 33.8 PG (27.0-34.0); MEAN CORPUSCULAR HGB CONC 34.5 % (32.0-36.0); MONO % 10.4 % (0.0-8.0); NEUT % 54.4 % (16.0-70.0); PLATELET COUNT 255 TH/MM3 (150-450); RED BLOOD COUNT 4.28 MIL/MM3 (4.00-5.30); RED CELL DISTRIBUTION WIDTH 12.7 % (11.6-17.2); WHITE BLOOD COUNT 7.6 TH/MM3 (4.0-11.0)
[2017-01-16 18:53] LABS: POTASSIUM 3.9 MEQ/L (3.5-5.1)
[2017-01-16 19:07] VITALS: BP 128/65; PULSE 77; RESP 20; O2SAT 97
[2017-01-16] MEDS: RESP: ALBUTEROL 2.5 MG/IPRATROPIUM 0.5 MG NEB (SCH) INH ×2 (19:36→19:37)
[2017-01-16 19:39] VITALS: O2SAT 97
[2017-01-16] MEDS ORDERED: PRED50 PO (20:14)
[2017-01-16] MEDS ORDERED: ALBUAER3 INH (20:14)
[2017-01-16] MEDS ORDERED: ALBUTEROL SULFATE 90 MCG/ACT HFA 8 GM INHALER INH ONE (20:30)
== END 2017-01-16 20:41 | disposition home or self-care (01) ==
LOC: NEPD 17:42
DX: J44.1 Chronic obstructive pulmonary disease with (acute) exacerbation (principal)
CPT/HCPCS: 71010; 80048; 84703; 85025; 94640; 94664; 96374; 99285; J2930